=== PATIENT | male | born 1960 ===

== ENCOUNTER 2024-12-02 10:03 | Outpatient (CLI) | payer OTHER, SELFPAY ==
--- NOTE | 2024-12-02 10:15 | MR_ITS ---
[address] [address] Phone:?[phone] Fax:?[phone] Referring Physician Information: Sue Sands [address] [facility] [address] Phone:?[phone] Fax:?[phone] Patient:Marquis Geiger D.O.B:?1960 Sex:?Male Phone:?[phone] [facility] MRN:?[id number] Exam Date:?12/02/2024 EXAM: MRI EXAMINATION OF THE RIGHT SHOULDER CLINICAL INFORMATION: Right shoulder pain. No specific injury. History of surgery. Evaluate rotator cuff muscle atrophy. Evaluate glenohumeral osteoarthritis. TECHNICAL INFORMATION: Coronal STIR as well as axial, sagittal and coronal PD and T2-weighted images acquired. No prior studies for comparison. INTERPRETATION: Bones: Postsurgical appearance of supraspinatus tendon repair surgery. Postsurgical appearance of acromioplasty and AC joint resection. No evidence for occult fracture or AVN. Rotator Cuff: Status post supraspinatus tendon repair surgery. There is a full- thickness, full width tear identified of the supraspinatus tendon insertion. Maximal tendon retraction is just medial to the mid humeral head level. No evidence for fatty muscle belly atrophy. The infraspinatus tendon is seen to be intact. Small and slender ganglion cysts identified within the distal muscle belly and musculotendinous junction. There is a mild appearance of muscle belly atrophy. The teres minor tendon is intact. Series 9 image 11 demonstrate a 6 mm partial-thickness tear involving the far severe subscapularis tendon insertion. Coracoacromial arch: Postsurgical appearance of acromioplasty. The bony acromiohumeral interval is measuring 8 mm. There is no thickening identified of the coracoacromial ligament. Acromioclavicular joint: Status post AC joint resection. No deformity of the underlying supraspinatus tendon. Biceps tendon: The long head biceps tendon is intact and nondisplaced from the bicipital groove. No evidence for a tendon tear or any appreciable changes of tendinopathy. No evidence for tenosynovitis. Glenohumeral joint and labrum: No significant glenohumeral joint effusion. No discrete loose body within the joint. There is broad thinning of the articular cartilage of the glenoid, without evidence for more focal defect or full-thickness cartilage loss. Mild thinning of the articular cartilage involving the humeral head alongside the articulation. No discrete SLAP tear. There is marked blunting through the superior posterior labrum. No discrete labral tear. No discrete paralabral cyst is identified. CONCLUSION: 1. Status post supraspinatus repair surgery. There is a full-thickness, full width tear of the tendon with retraction just medial to the mid humeral head level. No muscle belly atrophy. 2. Intact infraspinatus tendon. Small and slender ganglion cysts within the distal muscle belly musculotendinous junction. Mild muscle belly atrophy. 3. A small partial-thickness tear involves the far superior subscapularis tendon insertion. 4. The subacromial space is well decompressed following acromioplasty and AC joint resection. 5. Unremarkable and intact long head biceps tendon. 6. Broad chondromalacia of the glenoid without evidence for full-thickness loss. Additional mild thinning of the articular cartilage overlying the humeral head along side the joint. KES Electronically signed on 12/02/2024 12:05:00 PM by Neymar Kramer M.D.
== END 2024-12-02 10:04 | disposition home or self-care (01) ==
PROVIDERS: Visit Provider Physician Assistant Surgical
DX: M25.511 Pain in right shoulder (principal); M67.411 Ganglion, right shoulder; S46.811A Strain of other muscles, fascia and tendons at shoulder and upper arm level, right arm, initial encounter; M94.211 Chondromalacia, right shoulder; M75.101 Unspecified rotator cuff tear or rupture of right shoulder, not specified as traumatic; M12.811 Other specific arthropathies, not elsewhere classified, right shoulder; Z98.890 Other specified postprocedural states
CPT/HCPCS: 73221

== ENCOUNTER 2024-12-07 10:30 | Outpatient (RCR) | payer OTHER, SELFPAY | END 2025-02-15 07:43 | disposition home or self-care (01) | PROVIDERS: PCP Physician Assistant; Visit Provider Physician Assistant Surgical | DX: M25.511 Pain in right shoulder (principal); M25.512 Pain in left shoulder; M75.101 Unspecified rotator cuff tear or rupture of right shoulder, not specified as traumatic; M12.811 Other specific arthropathies, not elsewhere classified, right shoulder; M67.912 Unspecified disorder of synovium and tendon, left shoulder; Z98.890 Other specified postprocedural states; Z51.89 Encounter for other specified aftercare | CPT/HCPCS: 97110; 97140; 97161 ==

== ENCOUNTER 2025-02-15 07:08 | Day surgery (SDC) | payer OTHER, SELFPAY ==
[2025-02-15] VITALS (17 sets, daily range): BP systolic 109–137; BP diastolic 49–88; PULSE 62–82; RESP 12–28; TEMP 36.1–36.5; O2SAT 91–95; BMI 27.6
--- NOTE | 2025-02-15 07:46 | W.PM.H&PU ---
History & Physical Update History & Physical Update H&P Reviewed and patient assessed: No changes noted
[2025-02-15] MEDS: SODIUM CHLORIDE 0.9 % (FLUSH) 10 ML SYRINGE IVF (07:56)
[2025-02-15] MEDS: LACTATED RINGERS 1000 ML 1,000 ML 100 ML IV (07:56)
[2025-02-15] MEDS: MIDAZOLAM HCL 1 MG/ML inj IVP (08:05)
--- NOTE | 2025-02-15 08:14 | P.NB_ITS ---
Nerve Block Nerve Block Time Seen by Provider: 08:00 Date Seen: 02/15/25 Type of block requested by surgeon for post-operative analgesia: supraclavicular Side: right Time out performed: Yes Verification of patient name: Yes Verification of date of : Yes Site marking: site marked Name of person performing procedure: Paloma Alvarado Continuous monitoring Was continuous monitoring of O2 sat, B/P, air sampling and monitoring, recorded every 15 minutes?: Yes Procedure Checklist: sterile prep, needles and gloves Ultrasound guided. Images saved: Yes Medications given in 5ml increments after negative aspiration: Ropivicaine %: 0.5 mL: 20 Needle gauge: 20 Precedex (mcg): 25 Patient tolerated procedure well: Yes Block Charges Block Charge (with Pro Fee): Brachial Plexus Use of Ultrasound Machine for Block: Yes- US Guidance/pain block
[2025-02-15] MEDS: fentaNYL 100 MCG/2 ML inj IVP (08:19)
--- NOTE | 2025-02-15 08:19 | SUR.PREOP ---
TIME?OUT:?0805 PT/RN/MDA?VERIFICATION?OF?SURGICAL?SITE,?PROCEDURE,?AND?CONSENT OBTAINED?PRIOR?TO?INVASIVE?PROCEDURE.
[2025-02-15] MEDS: CEFAZOLIN 2 GM in 0.9 % SODIUM CHLORIDE Mini-bag 100 ML IVPB (09:04)
[2025-02-15] MEDS: LACTATED RINGERS 1000 ML 1,000 ML 125 ML IV (09:55)
[2025-02-15] MEDS: EPINEPHrine 1 MG in SODIUM CHLORIDE IRRIG SOLUTION 3,000 ML 3001 MG IRRIGATION ×2 (10:10→10:55)
--- NOTE | 2025-02-15 11:14 | P.ORPRC_ITS ---
Procedure Note Date of procedure: 02/15/25 Procedure: PREOPERATIVE DIAGNOSES: 1. Right shoulder rotator cuff re-tear. 2. Right shoulder anterior and superior labral tearing POSTOPERATIVE DIAGNOSES: 1. Right shoulder rotator cuff re-tear. 2. Right shoulder anterior and superior labral tearing 3. Right shoulder adhesions from previous rotator cuff tear, surgery, and re- tear 4. Right shoulder foreign body (old sutures) NAME OF OPERATION: 1. Right shoulder arthroscopic rotator cuff re-repair - modifier 22 for 33% added difficulty for this case given the revision rotator cuff repair requiring lysis of adhesions in the subacromial space, more complex repair with less tang lity tissue and bone and removal of foreign bodies (old suture). 2. Right shoulder arthroscopic limited glenohumeral debridement SURGEON: Jersey Maloney MD ENVIRONMENTAL TECHNICAL OFFICER: Brock Dominguez PA-C. Of note, a skilled assistant professor of life sciences was critical for this case to aide in patient positioning, suture manipulation, arm positioning, instrument positioning, and closure. ANESTHESIA: General plus preoperative supraclavicular block. EBL: 25 mL IMPLANTS: Arthrex 5.5 mm BioComposite corkscrew suture anchor (x2); Arthrex 5.5 mm biocomposite Swivelock suture anchor (x2) COMPLICATIONS: None evident INDICATIONS: The patient is a pleasant, 64-year-old male who has experienced right shoulder pain that has been increasing in recent time. Physical exam and imaging were consistent with a rotator cuff tear. Given their findings, as well as the weakness and pain, and inadequate response to nonoperative management, recommendation was made for surgery. FINDINGS: Exam under anesthesia revealed stable shoulder with excellent range of motion. The diagnostic arthroscopy revealed healthy chondral surfaces of the glenohumeral joint. The Subscapularis tendon was intact and with a healthy attachment. The long head of the biceps tendon was intact. The superior rotator cuff tendon was found to be torn along with a mid supraspinatus split directed medially. The tear was otherwise full-thickness and retracted to the medial humeral head. There also on multiple green Ethibond sutures seen within the rotator cuff itself as well as within the bone at the previous anchor location. The anchor was not visualized. The labrum was degeneratively frayed in the anterior and superior aspects. No loose bodies were identified within the pouch or subscapularis recess. PROCEDURE: Following a thorough discussion of risks, benefits, and alternatives, consent was obtained and the right shoulder was marked. The patient was brought to the operating room and placed supine on the operating table. Induction of anesthesia was completed after preoperative supraclavicular block was administered in preop holding. Appropriate time out was performed identifying proper patient, site, and procedure. 2 g IV Ancef was administered within 1 hour of incision preoperatively. The right upper extremity was prepped and draped in the appropriate sterile fashion using ChloraPrep prep. This was after the patient was positioned in the beach chair with their head in neutral alignment and all bony prominences well padded. The shoulder was insufflated with 20mL of normal saline via an 18g spinal needle from a posterior approach. An 11 blade skin incision allowed a blunt trochar to be inserted and diagnostic arthroscopy to be performed with the findings as noted above. An anterior portal was established with an outside in technique. This allowed the probe to be inserted and confirm the diagnostic arthroscopic findings. The shaver was then inserted and allowed debridement of the anterior and superior la coby. Following this, the upper border subscapularis was probed and found to be stable without tearing. Thereafter, the subacromial space was entered. Here, a complete bursectomy was performed. Lysis of adhesions was required the subacromial space to mobilize this these supraspinatus rotator cuff tissue. Particularly on the more cephalad portion of the tissue but to some degree on the more caudal aspect. Further inspection of the supraspinatus and infraspinatus rotator cuff was performed. This identified the tear as noted above. Of note, the old Ethibond sutures were excised with a combination torpedo shaver & [place]. The margins of the tear were debrided, and the greater tuberosity was debrided with a combination of the apollo cautery, shaver, and bur on reverse setting. After gentle decortication, 2 medial 5.5 mm BioComposite corkscrew suture anchors (double loaded) were placed. The sutures were passed. Prior to tying, marginal convergence sutures were utilized for this supraspinatus split that it directed medially. 2 separate margin convergence sutures were utilized for this purpose. Thereafter, the remaining corkscrew sutures were tied with good reapproximation of the medial row. The sutures were then passed crisscrossing over the tissue and 2 separate 5.5 mm SwiveLock suture anchors were placed in the lateral row with excellent footprint compression and severe tuberosity. The rotator cuff showed excellent reapproximation of the greater tuberosity with good security upon probing. Prior to anchor tow car driver removal, the eyelet sutures were tugged on for each anchor and found that the anchor had excellent stability within the bone. The shoulder was placed through range of motion and found to be stable. The rotator cuff was re-probed and found to be stable. Instruments were removed. Excess fluid was drained, closure performed with 4-0 Monocryl and Steri-Strips. Dressings were applied. Sling was applied. The patient was awoken from anesthesia and transferred to the PACU in stable condition. A skilled assistant professor of life sciences was critical for this case to aid in patient positioning, limb positioning, skill to manipulate arthroscopic instruments and camera, suture management, patient safety, and closure. * Again, given the revision scenario, 33% added difficulty for this case requiring lysis of adhesions in the subacromial space, more complex repair with less quality tissue and bone and removal of foreign bodies (old suture). PLAN: 1. Elbow, forearm, wrist and digit range of motion as tolerated. 2. Encouraged ice. 3. Oxycodone for pain as needed. 4. Sling at all times except for ROM and showering. 5. Follow up with PA visit in 1-2 weeks for wound check. Initiate physical therapy following that visit for passive range of motion. Initiate active assisted range of motion at 6 weeks. May do pendulums now.
--- NOTE | 2025-02-15 11:37 | P.ANES_ITS ---
Anesthesia Charges Start Date/Time Anesthesia Start Date: 02/15/25 Anesthesia Start Time: 08:38 Stop Date/Time Anesthesia Stop Date: 02/15/25 Anesthesia Stop Time: 11:32 Coding CPT Codes CPT Codes: ANESTH SURGERY OF SHOULDER - 07993 ([id number]) P2 - PATIENT W/MILD SYST DISEASE, QZ - HVAC ESTIMATOR SVC W/O PHOTO MASK CLEANER BY
--- NOTE | 2025-02-15 11:37 | W.ANESCHARGE ---
Anesthesia Charges Start Date/Time Anesthesia Start Date: 02/15/25 Anesthesia Start Time: 08:38 Stop Date/Time Anesthesia Stop Date: 02/15/25 Anesthesia Stop Time: 11:32 Coding CPT Codes CPT Codes: ANESTH SURGERY OF SHOULDER - 50721 ([id number]) P2 - PATIENT W/MILD SYST DISEASE, QZ - STEWARD DISHWASHER SVC W/O PATTERN ILLUSTRATOR BY
--- NOTE | 2025-02-15 12:03 | SUR.PHASEI ---
patient met discharge criteria per anesthesia
== END 2025-02-15 14:09 | disposition home or self-care (01) ==
PROVIDERS: Visit Provider Orthopaedic Surgery Sports Medicine
PROC: (CPT 29805; principal; 2025-02-15 08:45)
DX: M75.121 Complete rotator cuff tear or rupture of right shoulder, not specified as traumatic (principal); S43.431A Superior glenoid labrum lesion of right shoulder, initial encounter; M75.01 Adhesive capsulitis of right shoulder; M79.5 Residual foreign body in soft tissue; G89.18 Other acute postprocedural pain
CPT/HCPCS: 29827; 29825; 29822; 01630; 64415; 76942; A9270; C1713; J0171; J0330; J0690; J1100; J2250; J2405; J2704; J2795; J3010; J3490; J7120; L3670

== ENCOUNTER 2025-04-14 14:45 | Outpatient (RCR) | payer OTHER, SELFPAY | END 2025-08-12 23:59 | disposition home or self-care (01) | PROVIDERS: Visit Provider Orthopaedic Surgery Sports Medicine | DX: Z48.89 Encounter for other specified surgical aftercare (principal); M25.511 Pain in right shoulder; Z51.89 Encounter for other specified aftercare | CPT/HCPCS: 97110; 97140; 97162 ==